=== PATIENT | female | born 1955 | race Caucasian/White ===

== ENCOUNTER 2021-03-19 11:38 | Outpatient (CLI) | payer OTHER, SELFPAY ==
--- NOTE | ~2021-03-19 | CT_ITS ---
EXAMINATION: CT lung screening DATE: 03/19/2021 12:06 INDICATION: Z87.891 - Personal history of nicotine dependence TECHNIQUE: Computed tomography (CT) of the chest was performed without intravenous contrast. Addition al 3D reconstructions utilizing coronal maximum intensity projection (MIP) were performed. Automated exposure control and iterative reconstruction technique were employed. The dose-length product was 11 1.58 mGy-cm. COMPARISON: None FINDINGS: Mild emphysema. Mild discoid atelectasis/scarring at the right middle lobe. Small calcified nodule at the lingula along with calcified mediastinal lymph nodes at the AP window consistent with old granul omatous disease. Subtle subtle groundglass nodule without evident solid component measuring approxima tely 1.5 cm diameter in the posterior segment of the right upper lobe. No other suspicious pulmonary nodules. No pulmonary edema or pleural effusion. Heart size is normal. Small amount of atheroscleroti c coronary artery calcific location. No pericardial effusion. Mild aortic valve calcification. Normal caliber thoracic aorta. No pathologically enlarged thoracic lymphadenopathy. A couple approximately 1 cm low-attenuation lesions in the left hepatic lobe most consistent with cysts or hemangiomas. Mild lower thoracic spondylosis. IMPRESSION: 1. Lung-RADS category 2: Benign appearance or behavior. Continue annual screening with noncontrast lo w-dose chest CT in 12 months. Reviewed, dictated and finalized at location A. ICULTURAL AGENT IMPRESSION: 1. Lung-RADS category 2: Benign appearance or behavior. Continue annual screeni ng with noncontrast low-dose chest CT in 12 months.
== END 2021-03-19 11:39 ==
LOC: MICIMG 11:40
PROVIDERS: PCP Family Medicine; Visit Provider Physician Assistant
DX: Z12.2 Encounter for screening for malignant neoplasm of respiratory organs (principal); Z87.891 Personal history of nicotine dependence
CPT/HCPCS: 71271

== ENCOUNTER → 2021-05-07 02:02 | Outpatient (CLI) | payer OTHER, SELFPAY ==
[2021-05-07 20:49] LABS: SARS-CoV-2 RNA PCR Positive
== END ==
PROVIDERS: PCP Family Medicine; Visit Provider Family Medicine
DX: U07.1 COVID-19 (principal)
CPT/HCPCS: C9803; U0003; U0005

== ENCOUNTER 2022-09-03 08:57 | Outpatient (CLI) | payer MEDICARE, SELFPAY ==
--- NOTE | ~2022-09-03 | US_ITS ---
Ultrasound of the Abdominal Aorta INDICATION: Family history of heart disease, abdominal aortic aneurysm TECHNIQUE: Grayscale, color Doppler, and pulsed Doppler images of the aorta and common iliac arteries were obtained. COMPARISON: None. FINDINGS: Maximum vascular dimensions are as follows: Proximal aorta: 2.0 cm Mid aorta: 1.7 cm Distal aorta: 1.4 cm Right common iliac artery: 1.0 cm Left common iliac artery: 0.9 cm There is no evidence of abdominal aortic aneurysm. IMPRESSION: No evidence for abdominal aortic aneurysm. Reviewed, dictated and finalized at location M.
--- NOTE | ~2022-09-03 | US_ITS ---
EXAMINATION: US carotid duplex BI DATE: 09/03/2022 09:53 INDICATION: Other specified signs and symptoms involving the circulatory system. TECHNIQUE: Grayscale, color Doppler, and pulsed Doppler images of the cervical carotid arteries were obtained. The degree of vessel stenosis is placed in one of the following categories: normal, <50%, 5 0-69%, >=70% but less than near-occlusion, near-occlusion, or total occlusion. Note that percent sten osis relative to normal distal artery lumen diameter is indirectly measured from velocity measurement s as described by Joe, et al. Radiology 2003; [id number]. COMPARISON: None. FINDINGS: RIGHT: The right common carotid artery (CCA) peak systolic velocity (PSV) is 83 cm/s. The right internal car otid artery (ICA) PSV is 65 cm/s. The right ICA end-diastolic velocity (EDV) is 19 cm/s. The right IC A/CCA PSV ratio is 0.9. Grayscale and color Doppler images yield an estimate of <50% diameter reducti on from plaque in the ICA. The external carotid artery (ECA) PSV is 98 cm/s. There is antegrade flow in the right vertebral artery. LEFT: The left CCA PSV is 72 cm/s. The left ICA PSV is 75 cm/s. The left ICA EDV is 28 cm/s. The left ICA/C CA PSV ratio is 1.1. Grayscale and color Doppler images yield an estimate of <50% diameter reduction from plaque in the ICA. The ECA PSV is 54 cm/s. There is antegrade flow in the left vertebral artery. IMPRESSION: 1. <50% stenosis in the right internal carotid artery. 2. <50% stenosis in the left internal carotid artery. Reviewed, dictated and finalized at location L.
== END 2022-09-03 08:58 | disposition home or self-care (01) ==
PROVIDERS: PCP Family Medicine; Visit Provider Family Medicine
DX: R09.89 Other specified symptoms and signs involving the circulatory and respiratory systems (principal); F17.210 Nicotine dependence, cigarettes, uncomplicated; Z82.49 Family history of ischemic heart disease and other diseases of the circulatory system; I65.23 Occlusion and stenosis of bilateral carotid arteries
CPT/HCPCS: 76706; 93880

== ENCOUNTER 2022-10-29 00:44 | Day surgery (SDC) | payer MEDICARE, SELFPAY ==
[2022-10-16 15:00] VITALS: BMI 28.5
--- NOTE | 2022-10-28 16:17 | PM.HPGS ---
History of Present Illness History of Present Illness Consent: Risks, benefits, and alternatives have been discussed and questions answered. Patient agrees to proceed with procedure. Chief complaint: hx of colon polyps Narrative: Judi Gar is a 67 year old female Referred for colon cancer screening. She has a history of polyps. Review of Systems Review of Systems: All systems reviewed & are unremarkable except as noted in HPI and below PMFSH Past Medical History Medical History Gallstone Nicotine dependence Overweight (BMI 25.0-29.9) Surgical History Surgical History H/O hernia repair (~1986) H/O: hysterectomy (~1983) Hx of removal of ovary (~1994) Hx of tonsillectomy (~1973) Family History Family History Grandparent Diabetes mellitus Hypertension Family history of cardiovascular disease Cerebrovascular accident Family history of malignant neoplasm of breast Father Hypertension Family history of cardiovascular disease Acute myocardial infarction Mother Cerebrovascular accident Family history of malignant neoplasm Sibling Family history of malignant neoplasm of breast in first degree relative Other Family history of alcoholism Social History Social History Smoking packs per day: 1 Smoking cigarettes per day: 20.0 Years smoked: 45 Smoking pack-years: 45.00 Smoking status: Current every day smoker Tobacco type: cigarettes Alcohol intake: current Drinks per week: 4 Substance use type: does not use Lack of Transportation: No Lack of Food: Never True Current Housing: I Have Housing Concerned About Future Housing: No Difficulty Paying Gas/Electric Bills: No Difficulty Paying for Meds: No Currently Unemployed: No Education: Trade/Vocational Certificate Living arrangements: with family Spiritual care concerns: No Meds Home Medications and Allergies Home Medications Medication Instructions Recorded Confirmed Type aspirin 81 mg tablet,delayed 81 mg PO DAILY 05/17/19 10/29/22 History release (Aspir-) amlodipine 5 mg tablet 5 mg PO DAILY #90 tabs 03/09/22 10/29/22 Rx pravastatin 20 mg tablet 20 mg PO DAILY #90 tabs 08/31/22 10/29/22 Rx lisinopril 20 1 tablet PO DAILY 10/16/22 10/29/22 History mg-hydrochlorothiazide 12.5 mg tablet metoprolol succinate 50 mg 50 mg PO BID 10/16/22 10/29/22 History tablet,extended release 24 hr Allergies Allergy/AdvReac Type Severity Reaction Status Date / Time Sulfa (Sulfonamide Allergy Unknown Numbness Verified 10/29/22 10:00 Antibiotics) sulfamethizole Allergy Unknown chest Verified 10/29/22 10:00 pain, palpitations Exam Resp: Auscultation: clear to auscultation bilaterally Cardio: Rate: regular rate Rhythm: regular rhythm GI: GI Palp: Yes Soft to palpation and No Tenderness to palpation present (GI) Assessment and Plan Assessment and plan (1) Colon cancer screening: Code(s): Z12.11 - Encounter for screening for malignant neoplasm of colon Status: Acute Assessment and Plan: Colonoscopy with possible biopsy or polypectomy or cautery or injection of substances.
[2022-10-29 10:02] VITALS: BP 113/69; PULSE 82; RESP 16; TEMP 36.2; O2SAT 99
[2022-10-29] MEDS: LACTATED RINGERS 1,000 ML 150 ML IV CONT (10:11)
--- NOTE | 2022-10-29 10:27 | WPDANESEPPF ---
Anes - Initial Pre Proc Eval Procedure: Operation Date: 10/29/22 11:00 Proposed Procedures p Colonoscopy - Shakeel Crum MD Date/Time: 10/29/22 10:27 Surgeon: Shakeel Crum MD Pre Op Diagnosis: hx of colon polyps Patient Data Age: 67 Gender: F Height: 1.6 m Weight: 70.6 kg Last Vital Signs Temp 97.1 F L 10/29/22 10:02 Pulse 82 10/29/22 10:02 Resp 16 10/29/22 10:02 BP 113/69 10/29/22 10:02 Pulse Ox 99 10/29/22 10:02 O2 Del Method Room Air 10/29/22 10:02 Allergies Allergy/AdvReac Type Severity Reaction Status Date / Time Sulfa (Sulfonamide Allergy Unknown Numbness Verified 10/29/22 10:00 Antibiotics) sulfamethizole Allergy Unknown chest Verified 10/29/22 10:00 pain, palpitations Home Medications Medication Instructions Recorded Confirmed Type aspirin 81 mg tablet,delayed 81 mg PO DAILY 05/17/19 10/29/22 History release (Aspir-) amlodipine 5 mg tablet 5 mg PO DAILY #90 tabs 03/09/22 10/29/22 Rx pravastatin 20 mg tablet 20 mg PO DAILY #90 tabs 08/31/22 10/29/22 Rx lisinopril 20 1 tablet PO DAILY 10/16/22 10/29/22 History mg-hydrochlorothiazide 12.5 mg tablet metoprolol succinate 50 mg 50 mg PO BID 10/16/22 10/29/22 History tablet,extended release 24 hr Patient hx anesthesia problems: none Family hx anesthesia problems: none Results Review: All pre-operative results and documents have been reviewed as part of the pre-operative evaluation. [facility] Past Medical History Medical History Gallstone Nicotine dependence Overweight (BMI 25.0-29.9) Surgical History Surgical History H/O hernia repair (~1986) H/O: hysterectomy (~1983) Hx of removal of ovary (~1994) Hx of tonsillectomy (~1973) Family History Family History Grandparent Diabetes mellitus Hypertension Family history of cardiovascular disease Cerebrovascular accident Family history of malignant neoplasm of breast Father Hypertension Family history of cardiovascular disease Acute myocardial infarction Mother Cerebrovascular accident Family history of malignant neoplasm Sibling Family history of malignant neoplasm of breast in first degree relative Other Family history of alcoholism Social History Social History Smoking packs per day: 1 Smoking cigarettes per day: 20.0 Years smoked: 45 Smoking pack-years: 45.00 Smoking status: Current every day smoker Tobacco type: cigarettes Alcohol intake: current Drinks per week: 4 Substance use type: does not use Lack of Transportation: No Lack of Food: Never True Current Housing: I Have Housing Concerned About Future Housing: No Difficulty Paying Gas/Electric Bills: No Difficulty Paying for Meds: No Currently Unemployed: No Education: Trade/Vocational Certificate Living arrangements: with family Spiritual care concerns: No Anes - Eval Final PreProcedure Day of Procedure 10/29/22 10:27 Patient weight: normal Heart: regular rate and rhythm Lungs: clear to auscultation Airway: Mallampati scale class II Neurological: alert and oriented Last oral intake: >/= 8 hours ASA classification: II Emergent: no Anesthetic plan: proceed Anesthesia type and monitoring: general GIVS and standard monitoring Results Review: All pre-operative results and documents have been reviewed as part of the pre-operative evaluation. Informed Consent: The patient's anesthetic plan and its attendant risks and benefits were discussed with the patient/family/POA. Questions were solicited and answers provided to the satisfaction of the patient/family/POA.
[2022-10-29 11:24] VITALS: BP 115/89; PULSE 70; RESP 22; O2SAT 97
[2022-10-29 11:34] VITALS: BP 98/54; PULSE 67; RESP 18; O2SAT 100
[2022-10-29 11:44] VITALS: BP 120/74; PULSE 70; RESP 18; O2SAT 100
== END 2022-10-29 11:50 | disposition home or self-care (01) ==
PROVIDERS: PCP Family Medicine; Visit Provider Internal Medicine Gastroenterology
PROC: 0DJD8ZZ Inspection of Lower Intestinal Tract, Via Natural or Artificial Opening Endoscopic (ICD-10-PCS; CPT 45378; principal; 2022-10-29 11:00)
DX: Z12.11 Encounter for screening for malignant neoplasm of colon (principal); K64.8 Other hemorrhoids; K57.30 Diverticulosis of large intestine without perforation or abscess without bleeding; D12.2 Benign neoplasm of ascending colon; Z79.82 Long term (current) use of aspirin; F17.210 Nicotine dependence, cigarettes, uncomplicated
CPT/HCPCS: 45380; 88305; J2704; J7120

== ENCOUNTER → 2022-12-07 10:34 | Outpatient (CLI) | payer MEDICARE, SELFPAY ==
--- NOTE | ~2022-12-07 | XR_ITS ---
EXAMINATION: XR foot LT min 3V DATE: 12/07/2022 10:46 INDICATION: Two-week follow-up of a left foot fracture TECHNIQUE: Dorsoplantar, two oblique and lateral views of the left foot were obtained. COMPARISON: None. FINDINGS: Fiberglas splinting along the posterior aspect of the left lower leg and plantar aspect of the foot. 10 degrees medial angulation and minimal displacement of a comminuted fracture of the mid to distal d iaphysis of the left fifth metatarsal. No evident productive changes of healing yet apparent although assessment of fine bone and soft tissue detail is mildly limited by the overlying splinting material . No other fractures identified. Alignment is otherwise normal. Mild osteoarthritis at the first meta tarsophalangeal and a few tarsometatarsal and interphalangeal joints. Small plantar calcaneal spur. S oft tissue swelling at the dorsal aspect of the distal forefoot. IMPRESSION: 1. No productive changes of healing yet apparent at a comminuted fractures of the mid to distal diaph ysis of the left fifth metatarsal with minimal displacement and 10 degrees medial angulation. Reviewed, dictated and finalized at location B. IMPRESSION: 1. No productive changes of healing yet apparent at a comminuted fractures of t he mid to distal diaphysis of the left fifth metatarsal with minimal displaceme nt and 10 degrees medial angulation.
== END ==
PROVIDERS: PCP Family Medicine; Visit Provider Family Medicine
DX: S92.352A Displaced fracture of fifth metatarsal bone, left foot, initial encounter for closed fracture (principal); X58.XXXA Exposure to other specified factors, initial encounter
CPT/HCPCS: 73630

== ENCOUNTER → 2022-12-23 09:01 | Outpatient (CLI) | payer MEDICARE, SELFPAY ==
--- NOTE | ~2022-12-23 | XR_ITS ---
EXAMINATION: XR foot LT min 3V DATE: 12/23/2022 09:10 INDICATION: Left fifth metatarsal fracture follow-up TECHNIQUE: Dorsoplantar, lateral, and oblique views of the left foot were obtained. COMPARISON: 12/07/2022 FINDINGS: Again seen is a comminuted mid/distal diaphyseal fracture of the fifth metatarsal. Alignmen t is near-anatomic. There is minimal calcified callus formation. The splint has been removed. No alec tional fracture is identified. There is mild osteoarthritis at the first metatarsophalangeal joint an d multiple interphalangeal joints. A plantar calcaneal enthesophyte is noted. IMPRESSION: 1. Comminuted mid/distal diaphyseal fracture of the fifth metatarsal with minimal increase in calcifi ed callus. Reviewed, dictated and finalized at location A. IMPRESSION: 1. Comminuted mid/distal diaphyseal fracture of the fifth metatarsal with minim al increase in calcified callus.
== END ==
PROVIDERS: PCP Family Medicine; Visit Provider Family Medicine
DX: S92.352A Displaced fracture of fifth metatarsal bone, left foot, initial encounter for closed fracture (principal)
CPT/HCPCS: 73630

== ENCOUNTER → 2023-01-27 15:11 | Outpatient (CLI) | payer MEDICARE, SELFPAY ==
--- NOTE | ~2023-01-27 | XR_ITS ---
EXAMINATION: XR foot LT min 3V DATE: 01/27/2023 15:23 INDICATION: Fifth metatarsal fracture follow-up TECHNIQUE: Dorsoplantar, lateral, and 2 oblique views of the left foot were obtained. COMPARISON: 12/23/2022 FINDINGS: A comminuted mid/distal diaphyseal fracture of the fifth metatarsal is again seen. There is continued increase in, and remodeling of, calcified callus. No additional fracture is identified. Mi ld osteoarthritis is noted in multiple interphalangeal joints and at the first metatarsophalangeal vinny int. There is a plantar calcaneal enthesophyte. IMPRESSION: 1. Fifth metatarsal fracture with continued routine healing. Reviewed, dictated and finalized at location F.
== END ==
PROVIDERS: PCP Family Medicine; Visit Provider Family Medicine
DX: S92.352D Displaced fracture of fifth metatarsal bone, left foot, subsequent encounter for fracture with routine healing (principal); X58.XXXD Exposure to other specified factors, subsequent encounter
CPT/HCPCS: 73630

== ENCOUNTER 2023-09-29 09:27 | Outpatient (CLI) | payer MEDICARE, SELFPAY ==
--- NOTE | ~2023-09-29 | CT_ITS ---
CT Scan of the Chest without Contrast: Clinical Indication: Lung cancer screening, nicotine dependence Technique: Contiguous sections were acquired throughout the chest without intravenous contrast. Dose reduction technique was used on this scan by utilizing automated exposure control and iterative recon struction technique. The dose-length product (DLP) was 97.34 mGy-cm. COMPARISON: 03/19/2021 Findings: There is no evidence of any significant mediastinal, hilar or axillary lymphadenopathy. There are ath erosclerotic calcifications of the aorta and coronary arteries. There is no evidence of pleural or pericardial effusion. Groundglass lesion in the posterior segment right upper lobe is slightly more conspicuous as compared to prior exam. Images through the upper abdomen reveal no abnormalities. Impression: Lung RADS 2: Benign appearance. 12 month follow-up screening CT advised. Reviewed, dictated and finalized at [facility]. Impression: Lung RADS 2: Benign appearance. 12 month follow-up screening CT advised.
== END 2023-09-29 09:28 ==
PROVIDERS: PCP Family Medicine; Visit Provider Family Medicine
DX: Z12.2 Encounter for screening for malignant neoplasm of respiratory organs (principal); Z87.891 Personal history of nicotine dependence
CPT/HCPCS: 71271

== ENCOUNTER 2023-10-21 09:10 | Outpatient (CLI) | payer MEDICARE, SELFPAY ==
--- NOTE | ~2023-10-21 | MM_ITS ---
EXAMINATION: MM diagnostic dolly BI w sade HISTORY: History of breast cancer TECHNIQUE: Additional 3-D tomosynthesis images of were performed and synthetic 2-D images were genera giana. CAD analysis was submitted and interpreted. COMPARISON: Comparison to multiple prior studies sequentially, with oldest reviewed study dated 03/04. BREAST PARENCHYMAL COMPOSITION: Not dense: There are scattered areas of fibroglandular density. FINDINGS: There are no suspicious masses, calcifications or architectural distortion in either breast to suggest malignancy. No significant interval change. IMPRESSION: 1. No evidence for malignancy in either breast. 2. Routine yearly screening mammogram and regular clinical breast examination are recommended. BI-RADS Category 1: Negative Reviewed, dictated and finalized at location B. IMPRESSION: 1. No evidence for malignancy in either breast. 2. Routine yearly screening mammogram and regular clinical breast examination a re recommended. BI-RADS Category 1: Negative
== END 2023-10-21 09:11 ==
LOC: MICIMG 09:11
PROVIDERS: PCP Family Medicine; Visit Provider Family Medicine
DX: Z85.3 Personal history of malignant neoplasm of breast (principal); Z80.3 Family history of malignant neoplasm of breast
CPT/HCPCS: 77062; 77066; G0279

== ENCOUNTER 2024-07-25 17:55 | Emergency (ER) | payer MEDICARE, SELFPAY ==
--- NOTE | ~2024-07-25 | XR_ITS ---
EXAM: XR foot LT min 3V DATE: 07/25/2024 18:09 HISTORY: injury pain along 5th metatarsal . COMPARISON: 01/27/2023. FINDINGS: Decreased mineralization. Nondisplaced, extra-articular, transverse fracture at the base t he fifth metatarsal. Healed distal diaphyseal fracture of the fifth metatarsal. No lytic or blastic l esion. Mild hallux valgus with degenerative change at the first MTP joint. Degenerative changes in mu ltiple interphalangeal joints. Plantar enthesopathy. No erosion or periosteal change. Soft tissue swe lling over the fifth metatarsal base. IMPRESSION: Osteopenia. Nondisplaced left fifth metatarsal base avulsion fracture. Reviewed, dictated and finalized at location [facility]. IMPRESSION: Osteopenia. Nondisplaced left fifth metatarsal base avulsion fractu re.
--- NOTE | 2024-07-25 18:00 | ED_ITS ---
HPI - Extremity Injury (Lower) General Chief Complaint: Extremity Injury, Lower Stated Complaint: Injured Left Foot Time Seen by Provider: 07/25/24 18:00 Source: patient, RN notes reviewed and old records reviewed Mode of arrival: ambulatory (crutches) Limitations: no limitations History of Present Illness HPI Narrative: 69 year old female accompanied by friend presents to express care with complaints of rolling her left foot outward when she stepped on area of uneven asphalt that was kind of washed out while walking the dog this evening prior to arrival. Patient reports that she broke a bone in her left foot the 5th metatarsal 2 years and has crutches and boot at home from then. Patient reports pain to the dorsal lateral aspect of her left foot with swelling, ecchymosis noted, strong pedal pulse present. MD complaint: foot injury Onset (ago): day(s) (this evening) Injury: Left: foot (dorsal/lateral over 5th metatarsal) Place: street/outdoors Severity scale (1-10): 3 Exacerbating factors: weight bearing, movement and palpation Associated symptoms: swelling and other (ecchymosis) Treatments prior to arrival: other (crutches) Related Data Home Medications ?Medication ?Instructions ?Recorded ?Confirmed ?Last Taken ?Type aspirin 81 mg tablet,delayed 81 mg PO DAILY 05/17/19 03/06/24 10/27/22 History release (Aspir-) lactobacillus combination no.9 4 4,000 mmu cells PO DAILY 08/25/23 03/06/24 Unknown History billion cell capsule (Adult 50 Plus Probiotic) Allergies Allergy/AdvReac Type Severity Reaction Status Date / Time Sulfa (Sulfonamide Allergy Unknown Numbness Verified 07/25/24 17:58 Antibiotics) sulfamethizole Allergy Unknown chest Verified 07/25/24 17:58 pain, palpitations Review of Systems Review of Systems: CONSTITUTIONAL: Denies fever, chills, or sweats. EYES: Denies visual changes, redness, or discharge. ENT: Denies rhinorrhea, congestion, sore throat, or otalgia. CARDIOVASCULAR: Denies chest pain, palpitations, or edema. RESPIRATORY: Denies cough or dyspnea. GASTROINTESTINAL: Denies abdominal pain, nausea, vomiting, or diarrhea. GENITOURINARY: Denies dysuria or hematuria. SKIN: Denies rash or itching. MUSCULOSKELETAL: Denies back pain, reports pain to the left foot over 5th metatarsal joint, or myalgia. NEUROLOGIC: Denies headache, numbness, or weakness. PSYCHIATRIC: Denies anxiety or depression. All systems reviewed & are unremarkable except as noted in HPI and below PMFSH Past Medical History Medical History (Updated 07/26/24 @ 22:10 by Lisha Freitas NP) Essential (primary) hypertension Mixed hyperlipidemia Fracture of fifth metatarsal bone of left foot Osteopenia Gallstone Overweight (BMI 25.0-29.9) Nicotine dependence Surgical History Surgical History Hx of removal of ovary (~1994) Hx of tonsillectomy (~1973) H/O hernia repair (~1986) H/O: hysterectomy (~1983) Family History Family History Grandparent Diabetes mellitus Hypertension Family history of cardiovascular disease Cerebrovascular accident Family history of malignant neoplasm of breast Father Hypertension Family history of cardiovascular disease Acute myocardial infarction Mother Cerebrovascular accident Family history of malignant neoplasm Sibling Family history of malignant neoplasm of breast in first degree relative Other Family history of alcoholism Social History Social History Smoking packs per day: 1 Smoking cigarettes per day: 20.0 Years smoked: 45 Smoking pack-years: 45.00 Smoking status: Current every day smoker Tobacco type: cigarettes Alcohol intake: current Drinks per week: 4 Substance use type: does not use Lack of Transportation: No Lack of Food: Never True Current Housing: I Have Housing Concerned About Future Housing: No Difficulty Paying Gas/Electric Bills: No Difficulty Paying for Meds: No Currently Unemployed: No Education: Trade/Vocational Certificate Living arrangements: with family Spiritual care concerns: No Comments At time of signature, agree with nursing past medical, surgical, social and family history. There is no relevant family history pertinent to the presenting complaint Exam Narrative: GENERAL: Well-appearing, well-nourished, and in no acute distress. HEAD: Normocephalic, atraumatic. EYES: PERRLA and EOMI. ENT: Nares clear, no rhinorrhea or epistaxis. Mucous membranes moist.TM's normal, throat pink with no swelling,tonsils absent NECK: Supple. no lymphadenopathy CHEST: Clear to auscultation. No respiratory distress.SAO2 100% on room air HEART: Regular rate and rhythm. No murmur heard. Normal peripheral pulses. ABDOMEN: Soft, nontender, nondistended, normal active bowel sounds. EXTREMITIES: Normal range of motion.left lateral foot pain and edema with bruising noted over 5th metatarsal region. pedal pulse strong left foot, increased pain with palpation, weight bearing and movement SKIN: Warm, dry, no rash. NEURO: No focal deficits. Alert and oriented x3. Course Course Emergency Course: Patient is aware of diagnosis, understands and agrees to treatment plan.? Anticipatory guidance given.? Patient agrees to follow-up as directed and is aware of reasons to seek care at the emergency department. Portions of this record may have been created with voice recognition software Level of Care: Express Care Visit Vital Signs Vital signs: Vital Signs Temperature 36.2 C L 07/25/24 18:02 Pulse Rate 96 07/25/24 18:02 Respiratory Rate 16 07/25/24 18:02 Blood Pressure 139/77 07/25/24 18:02 Pulse Oximetry 100 07/25/24 18:02 Temperature 36.2 C L 07/25/24 18:02 Pulse Rate 96 07/25/24 18:02 Respiratory Rate 16 07/25/24 18:02 Blood Pressure 139/77 07/25/24 18:02 Pulse Oximetry 100 07/25/24 18:02 Reviewed MDM - Extremity Injury (Lower) Differential Diagnosis Differential diagnosis: Likely fracture of toe and other (non displaced left 5th metatarsal base avulsion fracture. left lateral foot pain and swelling) Medical Records Attestation: I reviewed the patient's medical records. Imaging Data Attestation: I personally reviewed and interpreted this imaging study as follows: My impression: non displaced left fifth metatarsal base avulsion fracture Radiologist's impression: [facility] [address] [place], [place] [id number] XRay Report Signed Patient: Judi Gar : 1955 MR#: [id number] Age: 69 Acct:[id number] Loc: [facility] ADM Date: 07/25/24Attending Dr: Ordering Physician: Lisha Freitas APRN Date of Service: 07/25/24 Procedure(s): XR foot LT min 3V Accession Number(s): [id number] cc: INSURANCE AGENTS SUPERVISOR PHYSICIAN; Lisha Freitas APRN~ EXAM: XR foot LT min 3V DATE: 07/25/2024 18:09 HISTORY: injury pain along 5th metatarsal . COMPARISON: 01/27/2023. FINDINGS: Decreased mineralization. Nondisplaced, extra-articular, transverse fracture at the base the fifth metatarsal. Healed distal diaphyseal fracture of the fifth metatarsal. No lytic or blastic lesion. Mild hallux valgus with degenerative change at the first MTP joint. Degenerative changes in multiple interphalangeal joints. Plantar enthesopathy. No erosion or periosteal change. Soft tissue swelling over the fifth metatarsal base. IMPRESSION: Osteopenia. Nondisplaced left fifth metatarsal base avulsion fracture. Reviewed, dictated and finalized at [facility]. Please be advised this is a medical document. It is intended for [id number] communication. It is written in medical language and may contain unfamiliar abbreviations or verbiage. Medical documents are intended to carry relevant information, facts as evident, and the clinical opinion of the practitioner at the time of the encounter. This report may have been done utilizing a voice recognition system. Attempts have been made to correct errors. However, there may be uncorrected grammatical, spelling, and recognition errors present. The file time of this note does not necessarily represent the time of service. Dictated By: Toribio Mart MD 07/25/24 1820 Signed By: <Electronically signed by Toribio Mart MD in OV> Critical Care Time Critical Care Time Critical Care Time: No Discharge Plan Discharge Clinical Impression: Fracture of base of fifth metatarsal bone Qualifiers: Encounter type: initial encounter Fracture type: closed Laterality: left Qualified Code(s): S92.352A - Displaced fracture of fifth metatarsal bone, left foot, initial encounter for closed fracture Nondisplaced fracture of metatarsal bone Qualifiers: Encounter type: initial encounter Metatarsal bone: fifth Fracture type: closed Laterality: left Qualified Code(s): S92.355A - Nondisplaced fracture of fifth metatarsal bone, left foot, initial encounter for closed fracture Patient Disposition: Home, Self-Care Condition: Stable Instructions: Antibiotic Form, Foot Fracture in Adults (ED) Additional Instructions: Elastic wrap or orthopedic splint as directed for comfort for the next 5-7 days then gradually go to boot once your swelling has decreased Crutches as directed with non weight bearing Tylenol for lesser pain Ibuprofen regularly for the next 2-3 days for the inflammation Follow-up with orthopedic surgeon Dr Hernandez is healthcare administration intern ortho doctor [phone] Follow-up with PCP if further problems or concerns Ice to the area 20-30 minutes 4-6 times a day Elevate above heart If your symptoms persist, change or worsen significantly before you can contact your personal physician then please, without delay, go to the emergency department for further evaluation. Follow-up with PCP in 7-10 days or sooner if needed Follow up with PCP soon in regards to your blood pressure which is elevated above threshold for referral. Blood pressure above 120/80 may indicate pre- hypertension. 139/77 Patient Language: Hungarian Prescriptions: No Action aspirin [Aspir-81] 81 mg tablet,delayed release (DR/EC) 81 mg PO DAILY alendronate 70 mg tablet 70 mg PO WEEKLY Qty: 14 1RF Adult 50 Plus Probiotic 4 billion cell capsule 4,000 mmu cells PO DAILY Rx Instructions: administer with a meal pravastatin 20 mg tablet 20 mg PO DAILY Qty: 90 1RF amlodipine 5 mg tablet 5 mg PO DAILY Qty: 90 1RF lisinopril-hydrochlorothiazide 20-12.5 mg tablet 1 tablet PO DAILY Qty: 90 1RF metoprolol succinate 50 mg tablet extended release 24 hr 50 mg PO QHS Qty: 90 1RF atovaquone-proguanil [Malarone] 250-100 mg tablet See Rx Instructions PO .COMPLEX Qty: 20 0RF Rx Instructions: take 1 tab once daily x2days before exposure, during time in area, and x7 days after leaving area PO Follow-up/Referrals: PHYSICIAN,INSURANCE AGENTS SUPERVISOR [Primary Care Provider] - Time of Disposition: 18:45 Quality Soo Coma Scale Eyes: Open Verbal: Oriented and Alert Motor: Follows Commands Soo Coma Total Score: 15
[2024-07-25 18:02] VITALS: BP 139/77; PULSE 96; RESP 16; TEMP 36.2; O2SAT 100
== END 2024-07-25 18:47 | disposition home or self-care (01) ==
PROVIDERS: Emergency Provider Registered Nurse
DX: S92.355A Nondisplaced fracture of fifth metatarsal bone, left foot, initial encounter for closed fracture (principal); X50.9XXA Other and unspecified overexertion or strenuous movements or postures, initial encounter; Y93.K1 Activity, walking an animal; I10 Essential (primary) hypertension; E78.2 Mixed hyperlipidemia; M85.80 Other specified disorders of bone density and structure, unspecified site; F17.210 Nicotine dependence, cigarettes, uncomplicated; Z79.82 Long term (current) use of aspirin
CPT/HCPCS: 73630; 99214; G0463